=== PATIENT | male | born 1970 | race Caucasian/White ===

== ENCOUNTER 2025-01-16 10:52 | Emergency (ER) | payer MEDICARE, MEDICAID, SELFPAY ==
--- NOTE | 2025-01-16 | DI.CT.S_ITS ---
PROCEDURE: CT HEAD/BRAIN WO CON INDICATIONS: FALL SATURDAY, CHOKING, NECK PAIN TECHNIQUE: Noncontrast 4.5 mm thick angled axial sections acquired from the foramen magnum to the vertex, with coronal and sagittal reformats. For radiation dose reduction, the following was used: automated exposure control, adjustment of mA and/or kV according to patient size. COMPARISON: None. FINDINGS: Image quality: Diagnostic. CSF spaces: Basal cisterns are patent. No extra-axial fluid collections. Ventricles are normal in size and shape. Brain: No midline shift. No intracranial mass effect or hemorrhage. Starr- white matter interface is normal. Skull and face: Calvarium and visualized facial bones are intact, without suspicious lesions. Incidental debris in the left external auditory canal can be correlated with direct visualization Sinuses: Ethmoid mucosal thickening IMPRESSION: No acute intracranial pathology. Ethmoid mucosal sinus disease Approved by: Chon Fernandes M.D. on 01/16/2025 at 12:42
[2025-01-16 10:57] VITALS: BP 136/77; PULSE 76; RESP 14; TEMP 36.1; O2SAT 96; BMI 27.1
--- NOTE | 2025-01-16 11:28 | ED_ITS ---
HPI - Neck Pain/Injury General Chief Complaint: Neck Pain/Injury Stated Complaint: Fell 1wk ago, has plates on spine/screws - px Time Seen by Provider: 01/16/25 10:57 Mode of arrival: Ambulatory History of Present Illness HPI Narrative: 54 years old male with history of previous neck surgery follow up with the spine surgeon came in today complaining of neck pain, back pain after he was choking on his neck and fell down on Saturday. He currently complaining of right low back pain, neck pain. He called his surgeon and was asked to come to the ED for x- ray of the neck. He denied any numbness or weakness on his arms or legs. He said his legs always weak and numbness sensation slight weakness on the right arm. He denied any loss of consciousness, chest pain, abdominal pain. He had 1 episode of vomiting few days ago but no further episode of vomiting. He denied any fever, diarrhea, constipation, bowel or bladder incontinence or retention. Related Data Previous Rx's ?Medication ?Instructions ?Recorded cyclobenzaprine 10 mg tablet 10 mg PO TID PRN muscle s [facility] #15 01/16/25 tabs Allergies Allergy/AdvReac Type Severity Reaction Status Date / Time No Known Drug Allergies Allergy Verified 01/16/25 10:57 Review of Systems Review of Systems Narrative: Positive for neck pain, right low back pain. Chronic numbness weakness right arm and both leg weakness. Negative for chest pain, abdominal pain, headache, loss of consciousness. Patient History Smoking Status: Unknown if ever smoked Exam Narrative Exam Narrative: GENERAL: Alert awake without acute distress. HEAD: Atraumatic. Normocephalic. No stiff neck. No dariusz on the neck. No carotid bruits. NECK: Trachea midline. Non tender CARDIOVASCULAR: Regular rate and rhythm without murmurs, gallops, or rubs. RESPIRATORY: Clear to auscultation. Breath sounds equal bilaterally. No wheezes, rales, or rhonchi. GASTROINTESTINAL: Abdomen soft, non-tender, nondistended. EXTREMITIES: No edema or joint tenderness. BACK: Tenderness on palpation midline C-spine, thoracolumbar spine without step-off. Tenderness to palpation paraspinal muscle right lumbar region. NEURO: AOx3. Equal sensation on both legs. Decreased touch sensation in the right arm. Strength 4/5 right arm and 5/5 left arm. 5/5 strength in both legs for knee extension, ankle flexion and extension. SKIN: No rash or erythema of visible areas Initial Vital Signs Initial Vital Signs: Vital Signs Temperature 96.9 F L 01/16/25 10:57 Pulse Rate 76 01/16/25 10:57 Respiratory Rate 14 01/16/25 10:57 Blood Pressure 136/77 01/16/25 10:57 Pulse Oximetry 96 01/16/25 10:57 Oxygen Delivery Method Room Air 01/16/25 10:57 Course Orders Ordered: ED Orders 01/16/25 11:27 CT angio neck Stat CT cervical spine wo con Stat CT lumbar spine wo con Stat CT thoracic spine wo con Stat 01/16/25 11:45 BMP [Basic Metabolic Panel] Stat CBC Auto Diff [Complete Blood Count AUTO DIFF] Stat Vital Signs Vital signs: Vital Signs - 8 hr 01/16/25 10:57 01/16/25 13:19 Temperature 96.9 F L Pulse Rate 76 50 L Respiratory Rate 14 16 Blood Pressure 136/77 121/68 Pulse Oximetry 96 96 Oxygen Delivery Method Room Air Room Air MDM - Neck Pain/Injury Lab Data 01/16/25 11:45 01/16/25 11:45 Labs: Lab Results 01/16/25 Range/Units 11:45 WBC 7.4 (4.5-11.0) X10^3/uL RBC 4.29 L (4.5-5.9) X10^6/uL Hgb 14.1 (13.5-17.5) g/dL Hct 41.1 (41-53) % MCV 95.8 (80-100) fL MCH 33.0 (26-34) PG MCHC 34.4 (30-36) % RDW 12.7 (11.6-14.8) % Plt Count 338 (150-400) X10^3/uL Neut % (Auto) 60.1 (50-75) % Lymph % (Auto) 28.7 (25-40) % [place] % (Auto) 7.8 (3-14) % Eos % (Auto) 2.2 (2-4) % Baso % (Auto) 1.2 (0-2) % Neut # (Auto) 4400 (0004-1818) /uL Lymph # (Auto) 2100 (4527-0066) /uL [place] # (Auto) 600 (0-900) /uL Eos # (Auto) 200 (0-450) /uL Baso # (Auto) 100 (0-100) /uL Sodium 138 (137-145) mmol/L Potassium 4.1 (3.4-5.1) mmol/L Chloride 105 (98-107) mmol/L Carbon Dioxide 22 (22-32) mmol/L BUN 8 L (9-20) mg/dL Creatinine 0.68 (0.66-1.25) mg/dL Estimated GFR > 60 (>60) mL/min BUN/Creatinine Ratio 11.8 (6-22) Glucose 102 H (70-99) mg/dL Calcium 9.0 (8.4-10.2) mg/dL Imaging Data CT scan - head: Radiologist's Impression: PROCEDURE: CT HEAD/BRAIN WO CON INDICATIONS: FALL SATURDAY, CHOKING, NECK PAIN TECHNIQUE: Noncontrast 4.5 mm thick angled axial sections acquired from the foramen magnum to the vertex, with coronal and sagittal reformats. For radiation dose reduction, the following was used: automated exposure control, adjustment of mA and/or kV according to patient size. COMPARISON: None. FINDINGS: Image quality: Diagnostic. CSF spaces: Basal cisterns are patent. No extra-axial fluid collections. Ventricles are normal in size and shape. Brain: No midline shift. No intracranial mass effect or hemorrhage. Starr- white matter interface is normal. Skull and face: Calvarium and visualized facial bones are intact, without suspicious lesions. Incidental debris in the left external auditory canal can be correlated with direct visualization Sinuses: Ethmoid mucosal thickening IMPRESSION: No acute intracranial pathology. Ethmoid mucosal sinus disease Approved by: Chon Fernandes M.D. on 01/16/2025 at 12:42 CT C-spine: Radiologist's Impression: PROCEDURE: CT CERVICAL SPINE WO CON INDICATIONS: Was choking and fall on Saturday. Neck pain, back pain. TECHNIQUE: Noncontrast 3 mm thick sections acquired from the skull base to the T4 level. Sagittal and coronal reformats were then constructed. For radiation dose reduction, the following was used: automated exposure control, adjustment of mA and/or kV according to patient size. COMPARISON: None. FINDINGS: Image quality: Excellent. Bones: No fractures or dislocations. Visualized superior ribs are intact. C3- 4 and C4-5 discectomy and fusion with anterior plate and screw instrumentation. Persistent linear lucency along the C3-4 graft reflects poor incorporation. No evidence of hardware loosening. Persistent moderate central stenosis C3-4, C4-5 and C6-7 Soft tissues: Prevertebral soft tissues are normal in thickness. No paravertebral hematomas. No apical pneumothoraces. IMPRESSION: No displaced fracture or traumatic subluxation. Instrumented C3-4 and C4-5 discectomy and fusion. Degenerative disc disease and arthropathy associated with at least moderate central stenosis C3-4, C4-5 and C6-7 Approved by: Chon Fernandes M.D. on 01/16/2025 at 12:46 CT lumbar spine: Radiologist's Impression: PROCEDURE: CT LUMBAR SPINE WO CON INDICATIONS: Was choking and fall on Saturday. Neck pain, back pain. TECHNIQUE: Noncontrast 3 mm thick sections acquired from the T12 level to the sacrum. Sagittal and coronal reformats were constructed. For radiation dose reduction, the following was used: automated exposure control. COMPARISON: [facility], CT, CT THORACIC SPINE WO CON, 01/16/2025, 12:19. FINDINGS: Image quality: Excellent. Bones: There is normal bony alignment. No acute vertebral body compression fractures. No suspicious lytic or blastic bony lesions. No pars defects. Mild disc space narrowing and arthropathy in the lower lumbar spine associated with moderate foraminal stenosis bilaterally at L4-5 and L5-S1 Transitional anatomy noted with partial lumbarization of the S1 vertebral, and unilateral right rudimentary rib at L1 Soft tissues: No retroperitoneal masses or hematomas. Visualized aorta is normal in caliber. IMPRESSION: Degenerative disc disease and arthropathy without evidence of fracture or traumatic malalignment Transitional anatomy Approved by: Chon Fernandes M.D. on 01/16/2025 at 12:34 CTA neck: Radiologist's Impression: PROCEDURE: CT ANGIO NECK INDICATIONS: Was choking and fall on Saturday. Neck pain, back pain. TECHNIQUE: After the administration of intravenous contrast, 1.5 mm axial sections acquired from the aortic arch to the [place] of [place]. Maximum intensity projection (MIP) reformats were then performed. COMPARISON: None. FINDINGS: Image quality: Diagnostic. Carotid system: The great vessels demonstrate a conventional anatomy as they arise from the aortic arch. The origins of the common carotid arteries appear patent. The common carotid arteries demonstrate normal calibers and courses. The bifurcation regions appear normal bilaterally. The internal carotid arteries demonstrate normal caliber and course. Posterior circulation: The origins of the vertebral arteries appear patent. The more superior portions of the vertebral arteries demonstrate normal course and caliber. They join to form a normal appearing basilar artery. Soft tissues: Visualized neck soft tissues demonstrate no suspicious abnormalities. The thyroid gland demonstrates no significant abnormality. Bones: Degenerative disc disease and arthropathy. C3-4 and C4-5 discectomy and fusion with anterior plate and screw instrumentation. Persistent moderate central stenosis C3-4, C4-5 C5-6 IMPRESSION: No significant atherosclerotic plaque, stenosis or evidence of vascular injury Degenerative disc disease and arthropathy associated with moderate central stenosis C3-4, C4-5 and C5-6. No fracture or traumatic malalignment para Approved by: Chon Fernandes M.D. on 01/16/2025 at 12:28 CT thoracic spine: Radiologist's Impression: PROCEDURE: CT THORACIC SPINE WO CON INDICATIONS: Was choking and fall on Saturday. Neck pain, back pain. TECHNIQUE: Noncontrast 3 mm thick sections acquired through the region of interest in the thoracic spine. Sagittal and coronal reformats were then constructed. For radiation dose reduction, the following was used: automated exposure control. COMPARISON: None. FINDINGS: Bones: There is normal overall bony alignment. No acute vertebral body compression fractures. No suspicious sclerotic or lytic bony lesions. Central spinal canal is of normal overall caliber. Soft tissues: No paravertebral masses or hematomas. Visualized posteromedial lungs appear clear. IMPRESSION: Unremarkable thoracic spine. No fracture or traumatic malalignment Approved by: Chon Fernandes M.D. on 01/16/2025 at 12:29 [facility] Narrative Medical decision making narrative: 54 years old male with history of previous neck surgery follow up with the spine surgeon came in today complaining of neck pain, back pain after he was choking on his neck and fell down on Saturday. He currently complaining of right low back pain, neck pain. He called his surgeon and was asked to come to the ED for x- ray of the neck. He denied any numbness or weakness on his arms or legs. He said his legs always weak and numbness sensation slight weakness on the right arm. He denied any loss of consciousness, chest pain, abdominal pain. He had 1 episode of vomiting few days ago but no further episode of vomiting. He denied any fever, diarrhea, constipation, bowel or bladder incontinence or retention. On exam showed mild tenderness on palpation C-spine, thoracolumbar spine without step-off. No changes from the baseline weakness on the right arm and decreased touch sensation on the right arm. Normal strength on the left arm and both legs. His CV exam, lung exam, abdominal exam were normal. He is alert oriented x4 without acute distress. His CT scan C-spine, thoracolumbar spine, brain, CTA neck showed no acute finding. His CBC, BMP were normal. I asked him to follow up with his PCP, his spine surgeon outpatient. He was sent home with cyclobenzaprine. Return to the ED precautions was given. Discharge Plan Departure Patient Disposition: Home Clinical Impression: Acute strain of neck muscle, Fall, Head injury, Low back strain Activity Restrictions/Additional Instructions: Please follow-up with your spine surgeon. Please follow up with your primary care doctor. Please come back to the emergency room if any worsening symptoms including but not limited to increasing numbness or weakness from your baseline, vomiting, fever, chest pain, shortness of breath, bowel or bladder incontinence or retention. Prescriptions: New cyclobenzaprine 10 mg tablet 10 mg PO TID PRN (Reason: muscle spasm) Qty: 15 0RF Referrals: Kylee Lopez PA-C [Primary Care Provider, Medical] Stand Alone Forms: Patient Portal/API
[2025-01-16 11:57] LABS: Add Manual Diff / Slide Review NO; Hematocrit 41.1 % (41-53); Hemoglobin 14.1 g/dL (13.5-17.5); Lymphocytes Absolute Auto 2100 /uL (1100-4500); Mean Corpuscular HGB Conc 34.4 % (30-36); Mean Corpuscular Hemoglobin 33.0 PG (26-34); Mean Corpuscular Volume 95.8 fL (80-100); Platelet Count 338 X10^3/uL (150-400)
[2025-01-16 12:08] LABS: Blood Urea Nitrogen 8 mg/dL (9-20); Calcium 9.0 mg/dL (8.4-10.2); Carbon Dioxide 22 mmol/L (22-32); Chloride 105 mmol/L (98-107); Estimated Glomerular Filt Rate > 60 mL/min (>60); Glucose 102 mg/dL (70-99); HEMOLYSIS 19 (0-50); Potassium 4.1 mmol/L (3.4-5.1); Sodium 138 mmol/L (137-145)
--- NOTE | 2025-01-16 12:41 | PC.NURSE ---
This RN went to check on patient but patient is in diagnostic imaging.
[2025-01-16 13:19] VITALS: BP 121/68; PULSE 50; RESP 16; O2SAT 96
== END 2025-01-16 14:10 | disposition home or self-care (01) ==
PROVIDERS: Emergency Provider Emergency Medicine; Family Provider Physician Assistant; PCP Physician Assistant
DX: S16.1XXA Strain of muscle, fascia and tendon at neck level, initial encounter (principal); S09.90XA Unspecified injury of head, initial encounter; S39.012A Strain of muscle, fascia and tendon of lower back, initial encounter; W19.XXXA Unspecified fall, initial encounter; Z98.890 Other specified postprocedural states
CPT/HCPCS: 36415; 70450; 70498; 72125; 72128; 72131; 80048; 85025; 99283; 99284